=== PATIENT | female | born 1995 | race Caucasian/White ===

== ENCOUNTER 2018-01-18 17:12 | Emergency (ER) | payer BC, MEDICAID, SELFPAY ==
[2018-01-18 17:13] VITALS: BP 132/77; PULSE 107; RESP 17; TEMP 36.9; O2SAT 99; BMI 22.3
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
[2018-01-18] MEDS: Diphth,Pertuss(Acell),Tet Vac 0.5 ML Vial IM (18:10)
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
[2018-01-18 18:58] VITALS: BP 121/75; PULSE 98; RESP 6; O2SAT 99
== END 2018-01-18 18:59 | disposition home or self-care (01) ==
PROVIDERS: Emergency Provider Emergency Medicine; Family Provider Family Medicine; PCP Family Medicine
DX: O9A.212 Injury, poisoning and certain other consequences of external causes complicating pregnancy, second trimester (principal); S01.01XA Laceration without foreign body of scalp, initial encounter; S90.31XA Contusion of right foot, initial encounter; Z3A.18 18 weeks gestation of pregnancy; R40.2410 Glasgow coma scale score 13-15, unspecified time; V86.99XA Unspecified occupant of other special all-terrain or other off-road motor vehicle injured in nontraffic accident, initial encounter; Y93.9 Activity, unspecified; Y92.9 Unspecified place or not applicable
CPT/HCPCS: 12001; 73630; 90471; 90715; 99283; J7030

== ENCOUNTER 2018-06-13 20:18 | Outpatient (CLI) | payer MEDICAID, SELFPAY ==
[2018-06-13 21:20] VITALS: BMI 27.8
--- NOTE | 2018-06-14 06:45 | OB.TRI.NOTE ---
History of Present Illness Date of Service: 06/13/18 Was patient seen by the physician?: No Reason For Visit: R/O LABOR Date of Service: 06/13/18 Gestational age: 38.3 Allergies amoxicillin Allergy (Verified 06/13/18 20:58) Swelling NST - FHR Rate Baby A Baseline: 135 Variability:: Moderate Accelerations:: 15 x 15 Decelerations:: None NST Reactive:: Yes FHR Category:: Category I Uterine Activity:: irregular Impression/Plan 22yo @ 38.3 wks, false labor 1) dc home
== END 2018-06-13 22:33 | disposition home or self-care (01) ==
LOC: WPOUT 20:43 → OBT 20:49
PROVIDERS: Family Provider Family Medicine; PCP Family Medicine; Referring Provider Obstetrics & Gynecology; Visit Provider Obstetrics & Gynecology
DX: O47.1 False labor at or after 37 completed weeks of gestation (principal); Z3A.38 38 weeks gestation of pregnancy
CPT/HCPCS: 59025; 59050; 99218; G0378

== ENCOUNTER 2018-06-14 16:05 | Inpatient (IN) | payer MEDICAID, SELFPAY ==
[2018-06-13 21:20] VITALS: BMI 27.8
[2018-06-14 14:30] VITALS: BMI 29.4
[2018-06-14] MEDS: Acetaminophen 500 MG Tablet 1000 MG PO (15:10)
[2018-06-14] MEDS: Ondansetron ODT 4 MG Tablet PO (15:11)
[2018-06-14 16:35] LABS: Hematocrit 32.8 % (37-47); Hemoglobin 10.5 g/dl (12.0-15.0); Mean Corpuscular Hgb 26.8 pg (27.0-32.0); Mean Corpuscular Volume 83.7 fL (81-99); Mean Platelet Vol. 9.9 fl (6.2-12.0); Platelet Count 279 K/mm3 (150-450); RBC Distribution Width CV 14.2 % (11.6-14.6); RBC Distribution Width SD 43.3 fl (35.1-43.9); Red Blood Count 3.92 M/mm3 (4.2-5.4); Scan Indicated on CBC? Y/N NO; White Blood Count 21.2 K/mm3 (4.4-11.0)
--- NOTE | 2018-06-14 17:24 | PCM.HP.OB ---
History Date of Admission: 06/14/18 Final BI: 06/23/18 Final BI Source: US <20 weeks Gestational age: 38 Weeks and 5 Days History of this : This is a 22 year-old, G 1P0 @ 38.5 wks c/o contractions- found to be making cervical change- admitted for labor. Allergies amoxicillin Allergy (Verified 06/13/18 20:58) Swelling Home Medications: Home Medications Cyclobenzaprine [Flexeril] 10 mg PO TID PRN PRN 06/13/18 Vits [Prenatabs FA] 1 tablet PO DAILY 06/13/18 Sertraline HCl [Zoloft] 50 mg PO DAILY 06/13/18 Smoking Status: Never smoker Alcohol: None Number of Fetus(es): 1 Heart Tracin mod jaime, + accels, no decels. Reactive, category 1 TOCO Analysis: q2-4min History Past Pregnancies: Past Pregnancies Delivery Date Name GA/Weeks Outcome Route Weight Infant Gender Labor Length Anesthesia Delivery Location Provider FOB Labs: GBS neg, A+, HIV NR, HEP B neg, Syphils NEG, RUB imm, Expected Delivery Method: Spontaneous Vaginal Review of Systems Gastrointestinal: Reports: Abdominal Pain - fron contractions Psychiatric: Reports: Anxiety - on zoloft, doing well. Physical Exam General: Alert, Oriented x3 Abdomen: Soft, Non Tender, Gravid Neurological: Cranial nerves II-XII grossly intact SANDBLASTER GLASS: Normal external genitalia Estimated gestational size: Appropriate for gestational size Presentation: Cephalic Cervix Dilation (cm): 4 Station: -1 Effacement (%): 90 Assessment/Plan This is a 22 year-old, @ 38.5 wks in labor 1) admit to L&D 2) monitor FHR/toco 3) AROM performed- CLEAR 4) anticipate 5) epidural for pain mgmt 6) if indicated Pitocin
--- NOTE | 2018-06-14 17:28 | HP.PCM_ITS ---
History Date of Admission: 06/14/18 Final BI: 06/23/18 Final BI Source: US <20 weeks Gestational age: 38 Weeks and 5 Days History of this : This is a 22 year-old, G 1P0 @ 38.5 wks c/o contractions- found to be making cervical change- admitted for labor. Allergies amoxicillin Allergy (Verified 06/13/18 20:58) Swelling Home Medications: Home Medications Cyclobenzaprine [Flexeril] 10 mg PO TID PRN PRN 06/13/18 Vits [Prenatabs FA] 1 tablet PO DAILY 06/13/18 Sertraline HCl [Zoloft] 50 mg PO DAILY 06/13/18 Smoking Status: Never smoker Alcohol: None Number of Fetus(es): 1 Heart Tracin mod jaime, + accels, no decels. Reactive, category 1 TOCO Analysis: q2-4min History Past Pregnancies: Past Pregnancies Delivery Date Name GA/Weeks Outcome Route Weight Infant Gender Labor Length Anesthesia Delivery Location Provider FOB Labs: GBS neg, A+, HIV NR, HEP B neg, Syphils NEG, RUB imm, Expected Delivery Method: Spontaneous Vaginal Review of Systems Gastrointestinal: Reports: Abdominal Pain - fron contractions Psychiatric: Reports: Anxiety - on zoloft, doing well. Physical Exam General: Alert, Oriented x3 Abdomen: Soft, Non Tender, Gravid Neurological: Cranial nerves II-XII grossly intact DIRECT CARE WORKER: Normal external genitalia Estimated gestational size: Appropriate for gestational size Presentation: Cephalic Cervix Dilation (cm): 4 Station: -1 Effacement (%): 90 Assessment/Plan This is a 22 year-old, @ 38.5 wks in labor 1) admit to L&D 2) monitor FHR/toco 3) AROM performed- CLEAR 4) anticipate 5) epidural for pain mgmt 6) if indicated Pitocin
[2018-06-14] MEDS: Ondansetron 4 MG/2 ML Vial IV (18:38)
[2018-06-14] MEDS: Lactated Ringers 1,000 ML 50 ML IV (18:38)
[2018-06-14] MEDS: Oxytocin 30 units/NS 500 ml 30 UNITS/500 ML IV.SOLN 334 UNITS IV (22:20)
--- NOTE | 2018-06-14 22:24 | PCM.OB.VAG ---
Vaginal Delivery Maternal Presentation: Active Labor Amniotic Membrane Rupture Type: Artificial Amniotic Fluid Description: Clear Final BI: 06/23/18 Final BI Source: US <20 weeks Gestational age: 38 Weeks and 5 Days Date of Procedure: 06/14/18 Pre-Operative Diagnosis: spontaneous labor, term gestation Post-Operative Diagnosis: same, live female Surgery/ Procedure Performed: Spontaneous Vaginal Delivery Type of Anesthesia: Epidural Description of Procedure: of live female infant born without complication- good maternal pushing efforts. Presentation: Vertex Placental Delivery Description: Spontaneous Placenta Disposition: [facility] Cord Vessel Description: 3 Vessels Nuchal Cord Compression: Without compression Cord Entanglement: None Drain: Krueger to straight drain Estimated Blood Loss: 350 Infant A gender: Female (1 minute): 8 (5 minute): 9 Episiotomy Description: None Laceration: None Medications given after delivery: IV Pitocin, IM Methergin Complications: None
[2018-06-14] MEDS: Methylergonovine 0.2 MG/ML Ampul IM (22:25)
[2018-06-14] MEDS: Oxytocin 30 units/NS 500 ml 30 UNITS/500 ML IV.SOLN 167 UNITS IV (22:40)
--- NOTE | 2018-06-15 02:35 | NURSING ---
Assisted pt to restroom to attempt to urinate. Pt became nauseous on toilet and was unable to urinate. Pt moved to room 6 via wheelchair. Once pt resting in bed states she feels much better. Encouraged to sleep and will reassess nausea and attempt to urinate.
[2018-06-15 04:30] VITALS: BP 122/72; PULSE 108; RESP 16; TEMP 36.8; O2SAT 97
[2018-06-15] MEDS: Ibuprofen 600 MG Tablet PO ×3 (07:24→19:24)
--- NOTE | 2018-06-15 08:22 | PN.OBGYN_ITS ---
Patient Problems: Active and Suspected Problems (Last Updated 06/14/18 @ 17:28 by Danni Caballero MD) Anxiety (Acute) Schizencephaly (Acute) Subjective: pt seen at bedside, doing well.pt reports good pain control. lochia mild. breast feeding. - Physical Exam General: Alert, Oriented x3 Abdomen: Soft, Non Tender, - - fundus firm. Extremities: No Calf Tenderness Vital Signs Temp Pulse Resp BP Pulse Ox 98.2 F 108 H 16 122/72 H 97 06/15/18 04:30 06/15/18 04:30 06/15/18 04:30 06/15/18 04:30 06/15/18 04:30 Oxygen Delivery Method Room Air Weight: 73.028 kg Body Mass Index (BMI) 29.4 Intake and Output for Last 24 Hours 06/13/18 06/14/18 06/15/18 23:59 23:59 23:59 Output Total 400 / 400 Balance -400 / -400 Laboratory Tests Past 24 Hrs 06/14/18 06/14/18 16:15 16:15 WBC 21.2 H RBC 3.92 L Hgb 10.5 L Hct 32.8 L MCV 83.7 MCH 26.8 L MCHC 32.0 RDW 14.2 RDW Differential 43.3 Plt Count 279 MPV 9.9 Blood Type A POSITIVE Antibody Screen NEGATIVE Medical Necessity - Tobacco Use Smoking Status: Never smoker Assessment/Plan All Active Problems (Last Updated 06/14/18 @ 17:28 by Danni Bautista MD) Anxiety (Acute) Schizencephaly (Acute) PPD#1, doing well routine care pain mgmt
--- NOTE | 2018-06-15 08:23 | DCINST_ITS ---
Discharge Diet: No Restrictions Discharge Activity: Return to Normal Activity, May not drive while taking narcotic pain medications., May Shower May resume sexual activity in: 4-6 weeks Additional Activity Instructions:: Nothing in the vagina for 4-6 weeks. You may return to work/school in 6 weeks. Call your doctor if your incision/area has: Continuous Slow Oozing, Sudden Increased Bleeding, Increased Pain/ Swelling, Increased Redness, Foul Smelling Discharge Additional Instructions: If you experience any of the following, contact your healthcare provider. * Bleeding that soaks a pad every hour for 2 hours * Fever 100.4 or higher * Unrelieved incision or abdominal pain * Swelling, redness, discharge or bleeding from your incision or episiotomy site * Your incision begins to separate * Problems urinating (including inability to urinate or burning while urinating). * Visual changes * Severe headache * Flu-like symptoms * Pain or redness in one of both of your breasts * Pain, warmth, tenderness or swelling in your legs, especially the calf area * Frequent nausea and vomiting * Symptoms of depression or anxiety If you experience any of the following, call 911 or go to the nearest Emergency Room. * Chest pain * Problems breathing * Seizure activity * Partial or complete paralysis of a body part, slurred speech, weakness or drooping of the face, or a sudden inability to walk or hold your balance Allergies/Adverse Reactions: Allergies amoxicillin Allergy (Verified 06/13/18 20:58) Swelling Medications to take at Discharge Cyclobenzaprine [Flexeril] 10 mg PO TID PRN PRN 06/13/18 Vits [Prenatabs FA ] 1 tablet PO DAILY 06/13/18 Sertraline HCl [Zoloft] 50 mg PO DAILY 06/13/18 Ibuprofen [Motrin] 600 mg PO Q6H PRN PRN #30 tablet 06/15/18 The following prescriptions were given: Ibuprofen [Motrin] 600 mg PO Q6H PRN PRN #30 tablet PRN Reason: Mild Pain (1-310) When: Call to make an appointment with your doctor in 6 weeks. If you had elevated Blood Pressure or 4th degree laceration you will need to be seen in 2 weeks. Primary Care Physician: Olivia Maria PA-C [Primary Care Provider] - Test Results: Test results from this visit will be discussed in further detail at your follow- up appointment, if applicable.
[2018-06-15] MEDS: Sertraline 50 MG Tablet PO (09:15)
[2018-06-15] MEDS: Acetaminophen 500 MG Tablet 1000 MG PO (09:15)
[2018-06-15 10:00] VITALS: BP 124/81; PULSE 101; RESP 16; TEMP 37.3; O2SAT 96
[2018-06-15 12:00] VITALS: BP 127/76; PULSE 107; RESP 16; TEMP 36.5; O2SAT 97
[2018-06-15 18:00] VITALS: BP 127/74; PULSE 73; RESP 16; TEMP 36.8; O2SAT 98
[2018-06-15 20:00] VITALS: BP 115/76; PULSE 83; RESP 16; TEMP 37.5
[2018-06-16 02:00] VITALS: BP 96/43; PULSE 84; RESP 16; TEMP 36.9
[2018-06-16] MEDS: Ibuprofen 600 MG Tablet PO (05:26)
--- NOTE | 2018-06-16 07:48 | PN.OBGYN_ITS ---
Patient Problems: Active and Suspected Problems (Last Updated 06/14/18 @ 17:28 by Danni Caballero MD) Anxiety (Acute) Schizencephaly (Acute) Subjective: Pt doing well. Feels ready to go home. Ambulating and voiding without difficulty. Tolerating a regular diet without N/V. Denies lightheadedness, dizziness, CP, SOB, leg pain. Lochia normal. . - Physical Exam General: Alert, No apparent distress HEENT: Atraumatic Lungs: - - No increased resp effort Abdomen: Soft, Non-Distended Extremities: No edema Skin: No rashes Neurological: Neuro grossly intact Psych/Mental Status: Normal Affect, Appropriate Vital Signs Temp Pulse Resp BP Pulse Ox 98.5 F 84 16 96/43 L 98 06/16/18 02:00 06/16/18 02:00 06/16/18 02:00 06/16/18 02:00 06/15/18 18:00 Oxygen Delivery Method Room Air Weight: 161 lb Body Mass Index (BMI) 29.4 Intake and Output for Last 24 Hours 06/14/18 06/15/18 06/16/18 23:59 23:59 23:59 Output Total 400 / 400 Balance -400 / -400 Medical Necessity - Tobacco Use Smoking Status: Never smoker Assessment/Plan All Active Problems (Last Updated 06/14/18 @ 17:28 by Danni Bautista MD) Anxiety (Acute) Schizencephaly (Acute) PPD#2 s/p - Doing well - - PPBC: Declines at this time - Dispo: D/c home today. Discharge instructions reviewed
[2018-06-16 08:00] VITALS: BP 111/57; PULSE 109; RESP 16; TEMP 36.6
[2018-06-16] MEDS: Senna/Docusate Sodium 1 Tablet PO (09:39)
[2018-06-16] MEDS: Sertraline 50 MG Tablet PO (09:39)
[2018-06-16 13:24] VITALS: BP 125/82; PULSE 100; RESP 16; TEMP 37.2
== END 2018-06-16 15:10 | disposition home or self-care (01) | DRG 560 ==
LOC: WPOUT 16:07 → WP 22:16
PROVIDERS: Admitting Provider Obstetrics & Gynecology; Family Provider Family Medicine; PCP Family Medicine; Referring Provider Obstetrics & Gynecology; Visit Provider Obstetrics & Gynecology
DX: O99.344 Other mental disorders complicating childbirth (principal); F41.9 Anxiety disorder, unspecified; Z3A.38 38 weeks gestation of pregnancy; Z37.0 Single live birth; Z79.899 Other long term (current) drug therapy; Q04.6 Congenital cerebral cysts; O47.1 False labor at or after 37 completed weeks of gestation
CPT/HCPCS: 59025; 59050; 85027; 86850; 86900; 99218; J7120; G0378; J2405

== ENCOUNTER 2020-03-03 19:30 | Emergency (ER) | payer BC, MEDICAID, SELFPAY ==
[2020-03-03 19:31] VITALS: BP 129/90; PULSE 86; RESP 19; TEMP 36.8; O2SAT 98; BMI 23.9
[2020-03-03 19:39] VITALS: BP 129/90; PULSE 77; RESP 15; O2SAT 98
--- NOTE | 2020-03-03 19:51 | EKG12_ITS ---
Test Reason : SEIZURES Blood Pressure : / mmHG Vent. Rate : 085 BPM Atrial Rate : 085 BPM P-R Int : 120 ms QRS Dur : 078 ms QT Int : 374 ms P-R-T Axes : 059 057 031 degrees QTc Int : 445 ms Normal sinus rhythm Normal ECG Confirmed by ULICES LUDWIG, BRITNEY ([id number]), mapping editor JOSEPH PHAM ([id number]) on 03/07/2020 9:43:37 AM Referred By: Confirmed By:BRITNEY ELENA MD
--- NOTE | 2020-03-03 20:15 | CT_ITS ---
History: Seizure for 1 week. History of focal seizures. History of stroke at . Technique: Contiguous helical images were obtained through the brain. 2-D reformats. 223 images. Despite the history of problems since , no comparison imaging of any kind through the brain is perceived as available. Findings: The coronal images suggest the patient has schizencephaly with some heterotopic sanchez matter. Disease extends off the left lateral ventricle to the left frontal lobe. There is no significant midline shift. There is exvacuodilatation to the focal portion of the left lateral ventricle without hydrocephalus. No acute intracranial hemorrhage is present. No herniations are perceived. Visualized portions of the paranasal sinuses and mastoid air cells are free of disease. 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 No evidence of acute disease. Individualized dose optimization techniques were used for this CT. at 2042 Reported and signed by: Warren Moon MD Electronically Signed: Warren Moon MD at 20:41 EST Tel , Service support ,
[2020-03-03 20:30] LABS: Absolute Neutrophil Count 2.4 X10^3/uL (2.0-7.7); Basophil# 0.05 X10^3/uL; Basophil% 0.8 % (0-1); Eosinophil# 0.24 X10^3/uL; Eosinophils% 3.6 % (0-5); Hematocrit 37.8 % (37-47); Hemoglobin 11.5 g/dL (12.0-15.0); Lymphocyte % 46.8 % (19-41); Mean Corp Hgb Conc 30.4 g/dL (32-36); Mean Corpuscular Hgb 24.2 pg (27.0-32.0); Mean Corpuscular Volume 79.6 fL (81-99); Mean Platelet Vol. 10.5 fl (6.2-12.0); Monocyte# 0.79 X10^3/uL; Monocyte% 11.9 % (0-10); NRBC Flagged by Analyzer 0 % (0-5); Neutrophil # 2.43 X10^3/uL (2.7-7.7); Neutrophil % 36.7 % (47-70); Platelet Count 301 K/mm3 (150-450); RBC Distribution Width CV 19.5 % (11.6-14.6); RBC Distribution Width SD 56.7 fl (35.1-43.9); Red Blood Count 4.75 M/mm3 (4.2-5.4); White Blood Count 6.6 K/mm3 (4.4-11.0)
[2020-03-03 20:46] LABS: AST(SGOT) 11 U/L (15-37); Alanine Aminotransfer ALT/SGPT 23 U/L (13-56); Albumin, Serum 3.7 g/dL (3.2-5.0); Alkaline Phosphatase 108 U/L (45-117); Anion Gap 4 (5-15); BUN 14 mg/dL (7-18); BUN/Creat Ratio 19.9 RATIO (10-20); Calcium,Total 8.9 mg/dL (8.5-10.1); Chloride 108 mmol/L (98-107); EST Glomerular Filtration Rate 108 mL/min (>60); Est Glom Filt Rate - Afr Amer 130 mL/min (>60); Estimated Creatinine Clearance 107.01 ml/min; Globulin 3.8 g/dL (2.2-4.2); Glucose 88 mg/dL (74-106); Protein, Total 7.5 g/dL (6.4-8.2); Sodium Level 138 mmol/L (136-145)
[2020-03-03] MEDS: lamoTRIgine 25 MG Tablet 50 MG PO (20:47)
[2020-03-03 21:01] LABS: Lactic Acid 1.2 mmol/L (0.4-1.9)
--- NOTE | 2020-03-03 21:29 | ED.VIS.GEN ---
History of Present Illness Chief Complaint: Seizure Narrative: Patient presenting for evaluation secondary to potential seizures. Patient reports that she has an underlying history of schizencephaly and focal seizures. She reports that she is typically on Lamictal as well as as needed Xanax and citalopram. Patient states that her dosage of Lamictal was supposed to be 25 mg twice daily, but she has been taking it as 50 mg only at night. Patient is 12 weeks . She recently went back to work and has been having increased stress. Patient reportedly has been having issues of convulsions recently. She states that she will note that these are coming, as she starts to have twitches, and then she will have shaking of her upper and lower extremities of the last about 30 seconds for which she states that she is conscious throughout the entire thing and does not have any loss of consciousness bowel or bladder incontinence or tongue biting. Patient reports to me that she has been having increased episodes of the course of the last week that have resulted in 2 emergency department visits at [facility]. She had lab work and EKG, as needed benzos, but did not receive any sort of imaging. When she was having repeat episodes this evening it was recommended to her to come to this facility as we have more access to care. Patient denies being suicidal or homicidal. She is not hallucinating. She has not yet taken her nighttime doses of medications. Past Medical History - Allergies and Home Meds Allergies/Adverse Reactions: Allergies amoxicillin Allergy (Verified 06/13/18 20:58) Swelling Primary Care Physician: Olivia Maria PA-C [Primary Care Provider] - Prior records reviewed: Yes Past Medical History: - - Partial seizures Lives: With Family Smoking Status: Never smoker Alcohol: None Drugs: None Review of Systems All systems negative except as indicated General: Denies: Chills, Fever, Sweats Eyes: Denies: Visual changes - bilaterally, Diplopia ENT: Denies: Rhinorrhea, Sore throat Cardiovascular: Denies: Chest pain, Palpitations Respiratory: Denies: Dyspnea, Cough, Dyspnea on exertion Gastrointestinal: Denies: Abdominal pain, Nausea, Vomiting, Diarrhea, Melena, Hematochezia Genitourinary: Denies: Dysuria, Hematuria, Frequency Musculoskeletal: Denies: Back pain, Extremity Pain Skin: Denies: Rash, Wounds Neurological: Reports: - - Personal seizures Psych: Reports: - - Increased stress Physical Exam Vital Signs/Narrative: Vital Signs Temp Pulse Resp BP Pulse Ox 03/03/20 19:39 77 15 129/90 H 98 03/03/20 19:31 98.3 F 86 19 H 129/90 H 98 Inital Vital Signs reviewed: Yes General: Well nourished, Well developed, No Acute Distress Head: Normocephalic, Atraumatic Eyes: Perrl, EOMI ENT: Moist mucous membranes, No rhinorrhea Neck: Supple, Nontender Cardiovascular: Regular rate, Regular rhythm, No murmurs Respiratory: No distress, CTA bilaterally, Chest nontender Abdomen: Soft, Nontender, Nondistended, Normal bowel sounds Back: Nontender, Normal Inspection Extremities: Nontender, No edema Skin: Normal color, No rash Neurological: Alert, Oriented x3, Cranial nerves II-XII grossly intact, Normal Strength, Normal Sensation, - - Patient is having intermittent twitches of the shoulders and face which are alleviated by distraction Psychological: Normal affect, Normal Mood Diagnostic/Tx/Re-eval Clinical Impression(s) from Imaging Studies Brain CT 03/03/20 20:15 IMPRESSION: 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 No evidence of acute disease. Individualized dose optimization techniques were used for this CT. at 2042 Reported and signed by: Warren Moon MD Electronically Signed: Warren Moon MD at 20:41 EST Tel , Service support , Laboratory Data 03/03/20 03/03/20 03/03/20 19:35 19:35 20:18 WBC 6.6 RBC 4.75 Hgb 11.5 L Hct 37.8 MCV 79.6 L MCH 24.2 L MCHC 30.4 L RDW Std Deviation 56.7 H RDW Coeff of Kaitlin 19.5 H Plt Count 301 MPV 10.5 Immature Gran % (Auto) 0.200 Neut % (Auto) 36.7 L Lymph % (Auto) 46.8 H Troup % (Auto) 11.9 H Eos % (Auto) 3.6 Baso % (Auto) 0.8 Absolute Neuts (auto) 2.4 Absolute Lymphs (auto) 3.10 Nucleated RBC % 0 Sodium 138 Potassium 4.0 Chloride 108 H Carbon Dioxide 26.0 Anion Gap 4 L BUN 14 Creatinine 0.70 Estim Creat Clear Calc 107.01 Est GFR (MDRD) Af Amer 130 Est GFR (MDRD) Non-Af 108 BUN/Creatinine Ratio 19.9 Glucose 88 Lactic Acid 1.2 Calcium 8.9 Total Bilirubin 0.30 AST 11 L ALT 23 Alkaline Phosphatase 108 Troponin I < 0.015 Total Protein 7.5 Albumin 3.7 Globulin 3.8 Albumin/Globulin Ratio 1.0 - EKG Initial EKG Interpretation: - - Sinus rhythm of [address] segments normal T waves normal [place] and QTc intervals normal QRS duration no evidence of acute ischemia or arrhythmia - Medical Decision Making Patient presented secondary to abnormal twitching, and reported seizures. The way the patient describes this she states that she is fully awake during these, and these are either nonepileptogenic seizures or more associated with her partial seizures. Patient was given her nighttime dose of Lamictal. IV was established laboratory studies were obtained. CBC chemistry lactic acid found to be within normal limits. No evidence of electrolyte derangement. EKG was normal. CT imaging of the brain was stable with schizencephaly but no other evidence of acute pathology. Patient had no episodes of tonic-clonic seizures in the emergency department. Patient told me that rather than taking her medication twice daily as prescribed she was taking double the dose once at night. Potentially this is associated with the patient's increased symptoms, or its associated with increased stress and nonepileptogenic seizures, regardless she does not have any evidence of grand mal tonic-clonic seizures that would require admission. Patient will be sent home with as needed Ativan to be taken, she was recommended to go back to her twice daily dosing of her Lamictal and should she continue to have issues she will be doubled from 25 mg twice a day to 50 mg twice a day. She will be provided outpatient neurology follow-up. She understands signs and symptoms which to return. ED Disposition - Plan for ED Patient: Disposition: Home or Assisted Living Diagnosis: Pseudoseizure Instructions: ED Seizure Recurrent Adult, ED Conversion Disdr Conversion Reac Prescriptions: Lorazepam [Ativan] 1 mg PO TID #10 tab Prescription Printed Referrals: Sánchez Spears MD [STAFF PHYSICIAN] - As soon as possible
[2020-03-03 21:57] LABS: POSITIVE COUNT NO; POSITIVE DIFFERENTIAL NO; POSITIVE MORPHOLOGY NO
[2020-03-03 22:03] VITALS: BP 124/79; PULSE 71; RESP 16; O2SAT 98
== END 2020-03-03 22:07 | disposition home or self-care (01) ==
PROVIDERS: Emergency Provider Emergency Medicine; PCP Family Medicine
DX: F44.5 Conversion disorder with seizures or convulsions (principal); Q04.6 Congenital cerebral cysts; Z86.73 Personal history of transient ischemic attack (TIA), and cerebral infarction without residual deficits; Z79.899 Other long term (current) drug therapy
CPT/HCPCS: 70450; 80053; 83605; 84484; 85025; 93005; 99285; A4216

== ENCOUNTER 2020-08-21 18:05 | Emergency (ER) | payer BC, MEDICAID, SELFPAY ==
[2020-08-21 18:06] VITALS: BP 120/83; PULSE 89; RESP 14; TEMP 36.7; O2SAT 98; BMI 23.0
--- NOTE | 2020-08-21 18:16 | EKG12_ITS ---
Test Reason : DYSRHYTHMIA Blood Pressure : / mmHG Vent. Rate : 079 BPM Atrial Rate : 079 BPM P-R Int : 114 ms QRS Dur : 080 ms QT Int : 378 ms P-R-T Axes : -11 055 031 degrees QTc Int : 433 ms Normal sinus rhythm Normal ECG Confirmed by ULICES LUDWIG, BRITNEY ([id number]), fan mail editor JOSEPH PHAM ([id number]) on 08/22/2020 1:07:12 PM Referred By: MICHELLE Confirmed By:BRITNEY ELENA MD
--- NOTE | 2020-08-21 18:16 | CT_ITS ---
EXAMINATION : Head CT w/out contrast HISTORY : facial tingling COMPARISON : None. TECHNIQUE : Multiple contiguous axial images were obtained from the skull base to the vertex without intravenous contrast. A radiation dose optimization technique was used for this scan. FINDINGS : The ventricles and sulci are normal in size. There is no evidence for acute intracranial hemorrhage, mass effect, or midline shift. There is no extra-axial fluid collection. There is normal martinez-white differentiation, without CT evidence of acute ischemia or infarct. 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 The skull base and calvarium are unremarkable. The orbits are unremarkable. The paranasal sinuses are clear. The mastoid air cells are well-aerated. Pneumatization of the petrous apices. The soft tissues are unremarkable. 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 Electronically Signed: Jesus Lyons MD at 19:07 EDT Tel , Service support ,
[2020-08-21 18:23] VITALS: BP 107/71; PULSE 70; RESP 15
[2020-08-21 18:39] LABS: Mucous, Urine 0 SEEN /hpf (<or=2+)
[2020-08-21 18:41] LABS: Absolute Lymphocyte Count 3.31 X10^3/uL (0.83-4.51); Absolute Neutrophil Count 7.9 X10^3/uL (2.0-7.7); Basophil# 0.05 X10^3/uL; Basophil% 0.4 % (0-1); Eosinophil# 0.24 X10^3/uL; Eosinophils% 1.9 % (0-5); Hematocrit 39.8 % (37-47); Hemoglobin 12.7 g/dL (12.0-15.0); Lymphocyte # 3.31 X10^3/ul (0.83-4.51); Lymphocyte % 26.1 % (19-41); Mean Corp Hgb Conc 31.9 g/dL (32-36); Mean Corpuscular Hgb 26.7 pg (27.0-32.0); Mean Corpuscular Volume 83.6 fL (81-99); Mean Platelet Vol. 10.2 fl (6.2-12.0); Monocyte# 1.15 X10^3/uL; Monocyte% 9.1 % (0-10); NRBC Flagged by Analyzer 0 % (0-5); Neutrophil # 7.89 X10^3/uL (2.7-7.7); Neutrophil % 62.3 % (47-70); Platelet Count 370 K/mm3 (150-450); RBC Distribution Width CV 13.3 % (11.6-14.6); RBC Distribution Width SD 40.9 fl (35.1-43.9); Red Blood Count 4.76 M/mm3 (4.2-5.4); White Blood Count 12.7 K/mm3 (4.4-11.0)
[2020-08-21 18:43] LABS: Color, Urine Yellow (Yellow); Glucose, Dipstick Normal (Normal); Ketone-Dipstick 5 mg/dl (Negative); Leukocyte Esterase-Dipstick 100 /ul (Negative); Nitrite-Dipstick Negative (Negative); Occult Blood-Urine 250 /ul (Negative); Protein-Dipstick 15 mg/dl (Negative); Urine Bilirubin Dipstick Negative (Negative); Urine Clarity Sl. Cloudy (Clear); Urine Urobilinogen 1 mg/dl (Normal); Urine pH 6.5 (5.0 - 8.0)
[2020-08-21 18:45] LABS: Internal QC Validated? YES +Cl - CLEAR BKGD; Pregnancy, Urine Negative Negative
--- NOTE | 2020-08-21 18:50 | EDS_ITS ---
HPI History of Present Illness Chief Complaint: Neuro S/Sx Informant: patient Narrative Narrative: 25-year-old female presents with concern for facial tingling. States this occurred approximately 4 to 5 hours ago. States that she took a nap following and it remained. States that at first it was her entire face and now it is just around her lips. States it was on both sides of her face. States it was also in her left arm. Denies any vision change, headache, neck pain, nausea, vomiting, chest pain, shortness of breath, abdominal pain, urinary symptoms. PFSH PFSH Medical History Anxiety Schizencephaly Home Medications alprazolam 0.25 mg PO TID PRN 03/03/20 [History Last Taken Unknown] citalopram 40 mg PO DAILY 03/03/20 [History Last Taken Unknown] drospirenone-ethinyl estradiol 1 tab PO DAILY 03/03/20 [History Last Taken Unknown] clobazam [Onfi] 10 mg PO QHS 08/21/20 [History Last Taken Unknown] lamotrigine 200 mg PO BID 08/21/20 [History Last Taken Unknown] lorazepam 1 mg PO TID PRN 08/21/20 [History Last Taken Unknown] Allergy/AdvReac Type Severity Reaction Status Date / Time amoxicillin Allergy Swelling Verified 08/21/20 18:06 no significant family history no surgical history Social History Smoking Status: Never smoker ROS ROS ED Constitutional Constitutional ED: Denies chills, fever(s) or sweats Eyes Eyes: Denies blurry vision, change in vision or diplopia ENT ENT ED: Denies rhinorrhea or sore throat Cardiovascular Cardiovascular: Denies chest pain, orthopnea, palpitations or racing heartbeat Respiratory/Chest Respiratory/Chest: Denies cough, dyspnea, dyspnea on exertion, orthopnea or sputum Gastrointestinal Gastrointestinal: Denies abdominal pain, constipation, diarrhea, melena, nausea or vomiting Genitourinary Genitourinary ED: Denies dysuria, hematuria or urinary frequency Musculoskeletal Musculoskeletal: Denies arthralgias, myalgias or neck pain Integumentary Denies rash Neurologic Neurologic: Reports paresthesias and other Details: Bilateral facial tingling ; Denies headache(s) or weakness Psychiatric Psychiatric: Denies anxiety or depression Hematologic/Lymphatic Hematologic/Lymphatic: Denies easy bleeding or easy bruising Allergic/Immunologic Allergic/Immunologic ED: Denies mouth swelling or tongue swelling EXAM Physical Exam Const Vital Signs: 08/21/20 18:06 08/21/20 18:23 08/21/20 19:08 Temperature 98.1 F Temperature Source Temporal Pulse Rate 89 70 80 Respiratory Rate 14 15 16 Blood Pressure 120/83 H 107/71 121/81 H Blood Pressure Mean 95 83 94 Pulse Ox 98 95 Oxygen Delivery Method Room Air Room Air Positive well nourished and well developed General Appearance ED: well developed HEENT Reports TM's clear and moist mucous membranes normocephalic and atraumatic Tympanic Membrane ED: Yes TM's clear Eyes PERRL and EOMs intact bilaterally Neck no lymphadenopathy, supple and no JVD Chest Wall inspection of chest normal Resp normal respiratory effort and clear to auscultation bilaterally Cardio regular rate, S1 normal heart sound, S2 normal heart sound and no murmurs Peripheral Pulses: pulses 2+ throughout GI soft to palpation, non-tender and non-distended Back/Spine no CVA tenderness and no thoracic nor lumbar tenderness Extremity normal to inspection General Extremety ED: Negative for edema or tenderness General Extremity: Negative for edema Neuro oriented x3, CN's II-XII intact bilaterally and no sensory deficits noted Sensorium / Orientation: alert Motor Exam: strength 5/5 throughout Psych mental status grossly normal Skin no rashes or lesions noted MDM MDM MDM Narrative Medical decision making narrative: Patient appears well nontoxic. Vital signs within normal limits. No focal neurologic deficit. Lab work within normal limits. Urine shows a mild amount of ketones. Will be given 1 L of normal saline. CT brain negative. Patient symptoms are bilateral and unlikely to be neurologic in nature. No signs of meningismus. Patient will be advised to follow-up with her primary care provider and return for new or worsening symptoms. Patient agreeable and discharged home in stable condition. Lab Data Attestation: I reviewed the patient's lab results. Labs: Laboratory Results - last 24 hr 08/21/20 08/21/20 08/21/20 18:30 18:30 18:30 WBC 12.7 H RBC 4.76 Hgb 12.7 Hct 39.8 MCV 83.6 MCH 26.7 L MCHC 31.9 L RDW Std Deviation 40.9 RDW Coeff of Kaitlin 13.3 Plt Count 370 MPV 10.2 Immature Gran % (Auto) 0.200 Neut % (Auto) 62.3 Lymph % (Auto) 26.1 [place] % (Auto) 9.1 Eos % (Auto) 1.9 Baso % (Auto) 0.4 Absolute Neuts (auto) 7.9 H Absolute Lymphs (auto) 3.31 Nucleated RBC % 0 Sodium 141 Potassium 3.8 Chloride 105 Carbon Dioxide 28.0 Anion Gap 8 BUN 8 Creatinine 0.70 Estim Creat Clear Calc 106.09 Est GFR (MDRD) Af Amer 132 Est GFR (MDRD) Non-Af 109 BUN/Creatinine Ratio 11.5 Glucose 103 Calcium 9.1 Magnesium 1.9 Total Bilirubin 0.20 AST 15 ALT 22 Alkaline Phosphatase 101 Total Protein 8.1 Albumin 3.7 Globulin 4.4 H Albumin/Globulin Ratio 0.8 L Urine Color Yellow Urine Clarity Sl. Cloudy Urine pH 6.5 Ur Specific [place] 1.020 Urine Protein 15 H Urine Glucose (UA) Normal Urine Ketones 5 H Urine Occult Blood 250 H Urine Nitrite Negative Urine Bilirubin Negative Urine Urobilinogen 1 H Ur Leukocyte Esterase 100 H Urine RBC 10-25 SEEN Urine WBC 0-5 SEEN Ur Squamous Epith Cells 0-5 SEEN Urine Bacteria 1+ Urine Mucus 0 SEEN Urine Test POC Glucose 08/21/20 08/21/20 18:30 19:06 WBC RBC Hgb Hct MCV MCH MCHC RDW Std Deviation RDW Coeff of Kaitlin Plt Count MPV Immature Gran % (Auto) Neut % (Auto) Lymph % (Auto) [place] % (Auto) Eos % (Auto) Baso % (Auto) Absolute Neuts (auto) Absolute Lymphs (auto) Nucleated RBC % Sodium Potassium Chloride Carbon Dioxide Anion Gap BUN Creatinine Estim Creat Clear Calc Est GFR (MDRD) Af Amer Est GFR (MDRD) Non-Af BUN/Creatinine Ratio Glucose Calcium Magnesium Total Bilirubin AST ALT Alkaline Phosphatase Total Protein Albumin Globulin Albumin/Globulin Ratio Urine Color Urine Clarity Urine pH Ur Specific [place] Urine Protein Urine Glucose (UA) Urine Ketones Urine Occult Blood Urine Nitrite Urine Bilirubin Urine Urobilinogen Ur Leukocyte Esterase Urine RBC Urine WBC Ur Squamous Epith Cells Urine Bacteria Urine Mucus Urine Test Negative POC Glucose 100 Radiography Diagnostic Testing: Radiology Impression Brain CT 08/21/20 18:16 IMPRESSION: 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 Electronically Signed: Jesus Lyons MD at 19:07 EDT Tel , Service support , Rhythm Strip Rhythm Strip: Sinus Rhythm Rate: 79 Ectopy: None EKG Initial EKG: Attestation: I personally reviewed and interpreted this EKG as follows: Interpretation: Sinus Rhythm and No Acute Injury Pattern Comments: Normal sinus rhythm at 79 bpm. SD interval of 114 ms. QTC of 433 ms. Discharge Plan Triage Chief Complaint: Neuro S/Sx ED Provider: Georges Piedra Dx/Rx/DC Orders Clinical Impression: Facial paresthesia Instructions: ED Paraesthesias Prescriptions: No Action citalopram 40 MG tablet 40 mg PO DAILY RF: 0 alprazolam 0.25 MG tablet 0.25 mg PO TID PRN (Reason: Anxiety) RF: 0 drospirenone-ethinyl estradiol 1 EACH tablet 1 tab PO DAILY RF: 0 lamotrigine 200 mg Tablet 200 mg PO BID RF: 0 lorazepam 1 MG tablet 1 mg PO TID PRN (Reason: Seizure Activity) RF: 0 clobazam [Onfi] 10 mg Tablet 10 mg PO QHS RF: 0 Primary Care Provider: Olivia Maria Referrals: Olivia Maria PA-C [Primary Care Provider] - 2 Days Disposition Disposition: Home, self care
[2020-08-21 18:53] VITALS: BMI 23.0
[2020-08-21 18:58] LABS: ALB/GLOB Ratio 0.8 RATIO (0.9-2.4); AST(SGOT) 15 U/L (15-37); Alanine Aminotransfer ALT/SGPT 22 U/L (13-56); Albumin, Serum 3.7 g/dL (3.2-5.0); Alkaline Phosphatase 101 U/L (45-117); Anion Gap 8 (5-15); BUN 8 mg/dL (7-18); BUN/Creat Ratio 11.5 RATIO (10-20); Bacteria 1+ /hpf (None Seen); Calcium,Total 9.1 mg/dL (8.5-10.1); Chloride 105 mmol/L (98-107); EST Glomerular Filtration Rate 109 mL/min (>60); Est Glom Filt Rate - Afr Amer 132 mL/min (>60); Estimated Creatinine Clearance 106.09 ml/min; Globulin 4.4 g/dL (2.2-4.2); Glucose 103 mg/dL (74-106); Magnesium 1.9 mg/dL (1.6-2.6); Potassium 3.8 mmol/L (3.5-5.1); Protein, Total 8.1 g/dL (6.4-8.2); Red Blood Cells-Urine 10-25 SEEN /hpf (0-5); Sodium Level 141 mmol/L (136-145); Squamous Epithelial Cells - UA 0-5 SEEN /hpf (5-10); White Blood Cells 0-5 SEEN /hpf (0-5)
[2020-08-21 19:08] VITALS: BP 121/81; PULSE 80; RESP 16; O2SAT 95
[2020-08-21 19:11] LABS: Bedside Glucose 100 mg/dL (70-110)
[2020-08-21 19:42] VITALS: BP 126/76; PULSE 85; RESP 18; O2SAT 97
== END 2020-08-21 19:43 | disposition home or self-care (01) ==
PROVIDERS: Emergency Provider Emergency Medicine; PCP Family Medicine
DX: R20.2 Paresthesia of skin (principal); F41.9 Anxiety disorder, unspecified; Q04.6 Congenital cerebral cysts; Z79.899 Other long term (current) drug therapy
CPT/HCPCS: 70450; 80053; 81001; 81025; 82962; 83735; 85025; 93005; 96360; 99284; A4216

== ENCOUNTER 2021-05-15 15:46 | Outpatient (CLI) | payer BC, MEDICAID, SELFPAY ==
--- NOTE | 2021-05-15 14:45 | EMB_PTH ---
PATIENT: EFRA VERMA LOC: [facility] U#:[id number] AGE/SX: 25/F ROOM: RE05/15/[address]: Dr. Marco A Islas MD : 1995 BED: DIS: 05/15/2021 SPEC #: [id number] RECD: 05/15/21 15:55 STATUS: JAMES REGus #: [id number] AMRY: 05/15/21 14:[address]: Marco A Islas DEPT: SURGICAL PATHOLOGY RECD BY: Susanna Chavarria ENTERED: 05/16/21 09:41 SP TYPE: ENDOM BX/C ABDIEL DR: Olivia Maria PA-C Tissues: Endometrium, NOS Procedures: Surgery Specimen Level IV HEADER OPERATION: Endometrial biopsy PRE-OP DIAGNOSIS: Abnormal uterine bleeding TISSUE SUBMITTED: Endometrial biopsy MICROSCOPIC DIAGNOSIS Endometrium, biopsy: Transition endometrium with stroma and focal glandular breakdown. Benign stromal hyperplasia suggestive of exogenous hormonal effect. See comment. AM:keisha 05/17/2021 COMMENT Clinical correlation is suggested. MICROSCOPIC DESCRIPTION Slides are reviewed. GROSS DESCRIPTION Received in fixative is one container labeled with the patient's name and designated endometrial biopsy. The specimen consists of multiple irregular and elongated fragments of light to dark doran soft tissue that in aggregate measure 2.6 x 0.5 x 0.1 cm. The specimen is totally submitted in one cassette. / AM:keisha 05/16/2021 TC:5 CPT: 50252
== END 2021-05-15 23:59 | disposition home or self-care (01) ==
PROVIDERS: PCP Family Medicine; Visit Provider Obstetrics & Gynecology
DX: N85.01 Benign endometrial hyperplasia (principal)
CPT/HCPCS: 88305

== ENCOUNTER → 2022-07-12 | Outpatient (CLI) | payer MEDICAID, SELFPAY ==
[2022-07-23 16:00] LABS: HPV Reflexed? NOT INDICATED
== END | disposition home or self-care (01) ==
LOC: WOBLAB 16:45
PROVIDERS: PCP Family Medicine; Visit Provider Obstetrics & Gynecology
DX: Z12.4 Encounter for screening for malignant neoplasm of cervix (principal)
CPT/HCPCS: 88175; G0145

== ENCOUNTER 2022-08-23 17:42 | Emergency (ER) | payer MEDICAID, SELFPAY ==
[2022-08-23 17:43] VITALS: BP 146/89; PULSE 99; RESP 16; TEMP 36.6; O2SAT 100; BMI 20.9
[2022-08-23 18:41] LABS: Absolute Lymphocyte Count 4.33 X10^3/uL (0.83-4.51); Absolute Neutrophil Count 6.3 X10^3/uL (2.0-7.7); Basophil# 0.05 X10^3/uL; Basophil% 0.4 % (0-1); Eosinophil# 0.29 X10^3/uL; Eosinophils% 2.5 % (0-5); Hematocrit 39.1 % (37-47); Hemoglobin 12.9 g/dL (12.0-15.0); Lymphocyte # 4.33 X10^3/ul (0.83-4.51); Lymphocyte % 36.8 % (19-41); Mean Corpuscular Volume 87.9 fL (81-99); Mean Platelet Vol. 9.7 fl (6.2-12.0); Monocyte# 0.79 X10^3/uL; Monocyte% 6.7 % (0-10); NRBC Flagged by Analyzer 0 % (0-5); Neutrophil # 6.29 X10^3/uL (2.7-7.7); Neutrophil % 53.3 % (47-70); Platelet Count 369 K/mm3 (150-450); RBC Distribution Width SD 42.2 fl (35.1-43.9); Red Blood Count 4.45 M/mm3 (4.2-5.4); White Blood Count 11.8 K/mm3 (4.4-11.0)
[2022-08-23 19:05] LABS: Internal QC Validated? YES +Cl - CLEAR BKGD; Pregnancy, Serum, hCG Quali. NEGATIVE Negative
[2022-08-23 19:09] LABS: ALB/GLOB Ratio 0.7 RATIO (0.9-2.4); AST(SGOT) 16 U/L (15-37); Alanine Aminotransfer ALT/SGPT 22 U/L (13-56); Albumin, Serum 3.4 g/dL (3.2-5.0); Alkaline Phosphatase 80 U/L (45-117); Anion Gap 11 (5-15); BUN 11 mg/dL (7-18); BUN/Creat Ratio 14.1 RATIO (10-20); Chloride 106 mmol/L (98-107); Creatinine, Serum 0.78 mg/dL (0.55-1.02); EST Glomerular Filtration Rate 94 mL/min (>60); Est Glom Filt Rate - Afr Amer 114 mL/min (>60); Estimated Creatinine Clearance 93.55 ml/min; Globulin 4.8 g/dL (2.2-4.2); Glucose 96 mg/dL (74-106); Potassium 3.5 mmol/L (3.5-5.1); Protein, Total 8.2 g/dL (6.4-8.2); Sodium Level 140 mmol/L (136-145)
--- NOTE | 2022-08-23 19:10 | ED.VIS.FEGU ---
HPI HPI - Female History of Present Illness Chief Complaint: Vag Bleeding Narrative Narrative: 27-year-old female presenting with vaginal bleeding. She states she had vaginal bleeding and spotting since June. She sees Dr. Marco A Islas for this. She is scheduled for an ablation in September. She states today she felt a little bit lightheaded and called Dr. Islas's office and was referred to the ED. She states she has gone through a few more pads than usual. She states due to the vaginal bleeding she does not know when her menstrual cycle is. He does not believe she is . She does not have any abdominal pain but states she has some slight cramping which she always has. [facility] Medical History Anxiety Schizencephaly Home Medications alprazolam 0.25 mg tablet 0.25 mg PO TID PRN Anxiety 03/03/20 [History Last Taken Unknown] citalopram 40 mg tablet 40 mg PO DAILY 03/03/20 [History Last Taken Unknown] drospirenone 3 mg-ethinyl estradiol 0.02 mg tablet 1 tab PO DAILY 03/03/20 [History Last Taken Unknown] clobazam 10 mg tablet (Onfi) 10 mg PO QHS 08/21/20 [History Last Taken Unknown] lamotrigine 200 mg tablet 200 mg PO BID 08/21/20 [History Last Taken Unknown] lorazepam 1 mg tablet 1 mg PO TID PRN Seizure Activity 08/21/20 [History Last Taken Unknown] Allergy/AdvReac Type Severity Reaction Status Date / Time amoxicillin Allergy Swelling Verified 08/23/22 17:45 Social History Smoking Status: Never smoker ROS ROS ED ROS Narrative Lightheadedness Constitutional Constitutional ED: Denies chills, fever(s) or sweats Eyes Eyes: Denies blurry vision or change in vision ENT ENT ED: Denies ear pain or sore throat Cardiovascular Cardiovascular: Denies chest pain, palpitations or racing heartbeat Respiratory/Chest Respiratory/Chest: Denies cough, dyspnea or sputum Gastrointestinal Gastrointestinal: Denies abdominal pain, constipation, diarrhea, nausea or vomiting Genitourinary Genitourinary ED: Reports other Details: Vaginal spotting ; Denies dysuria, hematuria or urinary frequency Musculoskeletal Musculoskeletal: Denies arthralgias, myalgias or neck pain Integumentary Denies abscess, Abrasions or rash Neurologic Neurologic: Denies headache(s), paresthesias or weakness Psychiatric Psychiatric: Denies anxiety, depression, suicidal ideation or suicidal thoughts Endocrine Endocrinology: Denies polydipsia or polyuria EXAM Physical Exam Const Vital Signs: 08/23/22 17:43 08/23/22 19:43 08/23/22 20:04 Temperature 97.8 F Temperature Source Temporal Pulse Rate 99 93 Pulse Rate [Lying] 90 Pulse Rate [Sitting (for 1 minute prior to obtaining)] 110 H Pulse Rate [Standing (for 1 minute prior to obtaining)] 129 H Respiratory Rate 16 16 Blood Pressure 146/89 H 118/86 H Blood Pressure [Lying] 128/97 H Blood Pressure [Sitting (for 1 minute prior to obtaining)] 140/102 H Blood Pressure [Standing (for 1 minute prior to obtaining)] 127/98 H Blood Pressure Mean 108 96 Blood Pressure Mean [Lying] 107 Blood Pressure Mean [Sitting (for 1 minute prior to obtaining)] 114 Blood Pressure Mean [Standing (for 1 minute prior to obtaining)] 107 Pulse Ox 100 98 Oxygen Delivery Method Room Air Room Air 08/23/22 20:58 Temperature Temperature Source Pulse Rate 81 Pulse Rate [Lying] Pulse Rate [Sitting (for 1 minute prior to obtaining)] Pulse Rate [Standing (for 1 minute prior to obtaining)] Respiratory Rate 16 Blood Pressure 118/64 Blood Pressure [Lying] Blood Pressure [Sitting (for 1 minute prior to obtaining)] Blood Pressure [Standing (for 1 minute prior to obtaining)] Blood Pressure Mean Blood Pressure Mean [Lying] Blood Pressure Mean [Sitting (for 1 minute prior to obtaining)] Blood Pressure Mean [Standing (for 1 minute prior to obtaining)] Pulse Ox 99 Oxygen Delivery Method Positive well nourished General Appearance ED: NAD HEENT Reports moist mucous membranes Eyes PERRL and EOMs intact bilaterally General Eye ED: Negative for pale conjunctiva Resp normal respiratory effort and clear to auscultation bilaterally Auscultation: Negative for rales, rhonchi or wheezes Cardio regular rate and regular rhythm GI normal to inspection, nondistended, normoactive bowel sounds Neuro oriented x3 Sensorium / Orientation: alert Motor Exam: strength 5/5 throughout Psych Mood & Affect: anxious Skin no rashes or lesions noted MDM MDM MDM Narrative Medical decision making narrative: Patient presented with vaginal spotting. She states she feels lightheaded. She is a little tachycardic but admits she is anxious. CBC to assess white blood cell count, hemoglobin, platelets, differential. CMP to assess liver function, renal function, glucose, anion gap. Serum test to assess for . All of her blood work appears to be within normal limits. Serum negative. Hemoglobin stable at 12.9. Discussed with Dr. Islas. He stated that it was not determined what the source of her bleeding was. He states that he needs to get her into the OR and do the ablation and this where he will determine the etiology of the chronic vaginal bleeding. He recommended transport home follow-up with him. Patient minimal to this. Notably patient's orthostatic vital signs are normal as far as blood pressure goes but her heart rate does go up. Her heart rate when I was in the room was tachycardic as well. She does appear to be very anxious but I do not believe she is dehydrated patient will be discharged home to follow-up with Dr. Islas. Impression: 1. Anxiety 2. Dysfunctional uterine bleeding Lab Data Labs: Laboratory Results - last 24 hr 08/23/22 08/23/22 08/23/22 18:28 18:28 18:28 WBC 11.8 H RBC 4.45 Hgb 12.9 Hct 39.1 MCV 87.9 MCH 29.0 MCHC 33.0 RDW Std Deviation 42.2 RDW Coeff of Kaitlin 13.0 Plt Count 369 MPV 9.7 Immature Gran % (Auto) 0.300 Neut % (Auto) 53.3 Lymph % (Auto) 36.8 [place] % (Auto) 6.7 Eos % (Auto) 2.5 Baso % (Auto) 0.4 Absolute Neuts (auto) 6.3 Absolute Lymphs (auto) 4.33 Nucleated RBC % 0 Sodium 140 Potassium 3.5 Chloride 106 Carbon Dioxide 23.0 Anion Gap 11 BUN 11 Creatinine 0.78 Estim Creat Clear Calc 93.55 Est GFR (MDRD) Af Amer 114 Est GFR (MDRD) Non-Af 94 BUN/Creatinine Ratio 14.1 Glucose 96 Calcium 9.0 Total Bilirubin 0.20 AST 16 ALT 22 Alkaline Phosphatase 80 Total Protein 8.2 Albumin 3.4 Globulin 4.8 H Albumin/Globulin Ratio 0.7 L Serum , Qual NEGATIVE Urine Color Urine Clarity Urine pH Ur Specific [place] Urine Protein Urine Glucose (UA) Urine Ketones Urine Occult Blood Urine Nitrite Urine Bilirubin Urine Urobilinogen Ur Leukocyte Esterase Urine RBC Urine WBC Ur Squamous Epith Cells Urine Bacteria Urine Mucus Blood Type 08/23/22 08/23/22 18:28 19:50 WBC RBC Hgb Hct MCV MCH MCHC RDW Std Deviation RDW Coeff of Kaitlin Plt Count MPV Immature Gran % (Auto) Neut % (Auto) Lymph % (Auto) [place] % (Auto) Eos % (Auto) Baso % (Auto) Absolute Neuts (auto) Absolute Lymphs (auto) Nucleated RBC % Sodium Potassium Chloride Carbon Dioxide Anion Gap BUN Creatinine Estim Creat Clear Calc Est GFR (MDRD) Af Amer Est GFR (MDRD) Non-Af BUN/Creatinine Ratio Glucose Calcium Total Bilirubin AST ALT Alkaline Phosphatase Total Protein Albumin Globulin Albumin/Globulin Ratio Serum , Qual Urine Color Yellow Urine Clarity Clear Urine pH 7.0 Ur Specific [place] 1.010 Urine Protein Negative Urine Glucose (UA) Normal Urine Ketones Negative Urine Occult Blood 250 H Urine Nitrite Negative Urine Bilirubin Negative Urine Urobilinogen Normal Ur Leukocyte Esterase Negative Urine RBC 0-5 SEEN Urine WBC 0-5 SEEN Ur Squamous Epith Cells 0-5 SEEN Urine Bacteria 0 SEEN Urine Mucus 0 SEEN Blood Type A POSITIVE Discharge Plan Triage Chief Complaint: Vag Bleeding ED Provider: Corwin Hooks Dx/Rx/DC Orders Instructions: ED Dysfunctional Uterine Bleeding Prescriptions: No Action citalopram 40 MG tablet 40 mg PO DAILY alprazolam 0.25 MG tablet 0.25 mg PO TID PRN (Reason: Anxiety) drospirenone-ethinyl estradiol 1 EACH tablet 1 tab PO DAILY lamotrigine 200 mg Tablet 200 mg PO BID lorazepam 1 MG tablet 1 mg PO TID PRN (Reason: Seizure Activity) clobazam [Onfi] 10 mg Tablet 10 mg PO QHS Primary Care Provider: Dennise Mock Referrals: Dennise Mock PA [Primary Care Provider] - Disposition Disposition: Home, Self Care Discharge Date/Time: 08/23/22 20:59
[2022-08-23 19:43] VITALS: BP 118/86; PULSE 93; RESP 16; O2SAT 98
[2022-08-23 20:00] LABS: Bacteria 0 SEEN /hpf (None Seen); Mucous, Urine 0 SEEN /hpf (<or=2+)
[2022-08-23 20:04] VITALS: BP 127/98; BP 128/97; BP 140/102; PULSE 110; PULSE 129; PULSE 90
[2022-08-23 20:06] LABS: Color, Urine Yellow (Yellow); Glucose, Dipstick Normal (Normal); Ketone-Dipstick Negative (Negative); Leukocyte Esterase-Dipstick Negative /ul (Negative); Nitrite-Dipstick Negative (Negative); Occult Blood-Urine 250 /ul (Negative); Protein-Dipstick Negative (Negative); Urine Bilirubin Dipstick Negative (Negative); Urine Clarity Clear (Clear); Urine Urobilinogen Normal (Normal)
[2022-08-23 20:12] LABS: Red Blood Cells-Urine 0-5 SEEN /hpf (0-5); Squamous Epithelial Cells - UA 0-5 SEEN /hpf (5-10); White Blood Cells 0-5 SEEN /hpf (0-5)
[2022-08-23 20:58] VITALS: BP 118/64; PULSE 81; RESP 16; O2SAT 99
== END 2022-08-23 20:59 | disposition home or self-care (01) ==
PROVIDERS: Emergency Provider Student in an Organized Health Care Education/Training Program; Visit Provider Student in an Organized Health Care Education/Training Program
DX: N93.8 Other specified abnormal uterine and vaginal bleeding (principal); Q04.6 Congenital cerebral cysts; F41.9 Anxiety disorder, unspecified; Z79.899 Other long term (current) drug therapy; Z79.3 Long term (current) use of hormonal contraceptives
CPT/HCPCS: 80053; 81001; 84703; 85025; 86900; 86901; 99284

== ENCOUNTER 2022-09-24 12:01 | Observation (INO) | payer MEDICAID, SELFPAY ==
[2022-09-20 10:15] LABS: Hematocrit 39.2 % (37-47); Hemoglobin 12.9 g/dL (12.0-15.0); Mean Corp Hgb Conc 32.9 g/dL (32-36); Mean Corpuscular Hgb 29.3 pg (27.0-32.0); Mean Corpuscular Volume 88.9 fL (81-99); Mean Platelet Vol. 10.8 fl (6.2-12.0); Platelet Count 232 K/mm3 (150-450); RBC Distribution Width CV 13.1 % (11.6-14.6); RBC Distribution Width SD 42.8 fl (35.1-43.9); Red Blood Count 4.41 M/mm3 (4.2-5.4); White Blood Count 9.3 K/mm3 (4.4-11.0)
[2022-09-24] VITALS (30 sets, daily range): BP systolic 117–157; BP diastolic 67–102; PULSE 71–110; RESP 3–19; TEMP 36.3–36.8; O2SAT 93–100; BMI 20.4; BMI 20.3
[2022-09-24 06:31] LABS: Internal QC Validated? YES +Cl - CLEAR BKGD; Pregnancy, Urine Negative Negative
[2022-09-24] MEDS: Lactated Ringers 1,000 ML 15 ML IV (06:31)
--- NOTE | 2022-09-24 07:06 | PCM.HP.BLA ---
History and Physical Date of Admission: 09/24/22 Chief complaint: Abnormal uterine bleeding, desires permanent sterilization History of present illness: 27-year-old arrives for scheduled hysteroscopy, dilation curettage, endometrial ablation, laparoscopic tubal ligation for abnormal uterine bleeding and desires permanent sterilization. No medical changes on/seen. All questions answered and consent signed. Obstetric history: with a history of 2 vaginal deliveries Past medical history: Epilepsy, anxiety depression Medications: Citalopram, duloxetine, Keppra, lamotrigine, Xanax, Ativan Allergies: No known drug allergies Past surgical history: Heel surgery Social history: Denies smoking, alcohol use, drug use Family history: Denies history DVT or PE Review of systems: Besides above pertinent positives a full review of systems was performed and found to be negative Physical exam: Vitals: Blood pressure 129/75 pulse 86 respiratory rate 12 temperature 97.3 ?F SPO2 99% on room air General: Normal-appearing no acute distress HEENT: Normocephalic/atraumatic no cervical lymphadenopathy Cardiac/respiratory: No use of accessory muscles, nonlabored breathing Abdomen: Soft, nontender, nondistended Extremities: No peripheral edema normal peripheral pulses Psych: Normal affect normal demeanor nonpressured speech Labs: Urine test negative Assessment and plan: 27-year-old arrives for scheduled hysteroscopy, dilation curettage, endometrial ablation, laparoscopic tubal ligation for abnormal uterine bleeding and desire permanent sterilization. Patient understands risk of the procedure include but are not limited to visceral or vascular injury, prolonged hospitalization, blood loss need for transfusion, reoperation. Patient state understanding wish to proceed. All questions were answered and consent was signed.
--- NOTE | 2022-09-24 07:30 | EMB_PTH ---
PATIENT: EFRA VERMA LOC: ICU U#:[id number] AGE/SX: 27/F ROOM: [facility] RE09/24/[address]: Dr. Marco A Islas MD : 1995 BED: 1 DIS: 09/25/2022 SPEC #: [id number] RECD: 09/24/22 10:56 STATUS: JAMES REGus #: [id number] MARY: 09/24/22 07:[address]: Marco A Islas DEPT: SURGICAL PATHOLOGY RECD BY: Noa Lemons ENTERED: 09/24/22 12:02 SP TYPE: ENDOM BX/C ABDIEL DR: CAT Polanco Tissues: A - Endometrium, NOS B - Fallopian tube Procedures: Surgery Specimen Level II Surgery Specimen Level IV HEADER OPERATION: Hysteroscopy, D & C [place] PRE-OP DIAGNOSIS: Abnormal uterine bleeding TISSUE SUBMITTED: A ? Endometrial curettings, B ? Bilateral fallopian tubes MICROSCOPIC DIAGNOSIS A. Endometrial curettings: Weakly proliferative endometrium with focal area of exogenous hormone effect. B. Bilateral fallopian tubes, salpingectomy: Bilateral fallopian tubes, no pathologic diagnosis. LIONEL:keisha 09/25/2022 MICROSCOPIC DESCRIPTION Slides are reviewed. GROSS DESCRIPTION A - Received in fixative is one container labeled with the patient's name and designated endometrial curettings. The specimen consists of multiple fragments of hemorrhagic soft tissue that in aggregate measure 3.0 x 2.5 x 0.2 cm. The specimen is totally submitted in one cassette. B - Received in fixative is one container labeled with the patient's name and designated bilateral fallopian tubes. The specimen consists of bilateral fallopian tubes including fimbrial ends measuring 6.0 cm in length and 0.5 cm in diameter and 7.0 cm in length and 0.5 cm in diameter. The fallopian tubes are not identified as right or left. Sections reveal unremarkable cut surfaces. [employer] sections are submitted in two cassettes with each cassette containing one fallopian tube. / LIONEL:keisha 09/24/2022 TC:5 CPT: 42449, 87518 x2
--- NOTE | 2022-09-24 08:11 | OP.PCM_ITS ---
Report of Operation Date of Procedure: 09/24/22 Pre-Operative Diagnosis: Abnormal uterine bleeding, desires permanent steriliza tion Post-Operative Diagnosis: Abnormal uterine bleeding, desires permanent sterilization Surgery/Procedure Performed:: Hysteroscopy, dilation curettage, endometrial elation via Awilda, laparoscopic salpingectomy Description of Surgical Findings:: Surgeon: Marco A Islas MD Anesthesia: General EBL: 5 cc Urine output: 200 cc IV fluids: 1000 cc Complications: None Specimen: None Findings: No pathology noted on preprocedure hysteroscopy. Cavity length found to be 6 cm. Post procedure hysteroscopy with post ablation findings otherwise no pathology noted. Laparoscopy with normal uterus, tubes, and ovaries. Consent: Patient with abnormal uterine bleeding and desires permanent sterilization elects for hysteroscopy, dilation curettage, endometrial ablation via Awilda, laparoscopic salpingectomy. Patient understands risk of the procedure include but are not limited to visceral or vascular injury, prolonged hospitalization, blood loss need for transfusion, reoperation. Patient state understanding wish to proceed. All questions were answered and consent was signed. Procedure: Patient was brought back to the OR where general anesthesia was found to be adequate. Patient was prepared and draped in a dorsolithotomy position with yellowfin stirrups. A weighted speculum is placed in the posterior aspect of the vagina and cervical dilators were used to dilate the cervix. Hysteroscope was inserted and above findings were noted. Sharp endometrial curettings were performed in all quadrants and sent to pathology. Uterine cavity length was found to be 6 cm. Awilda endometrial ablation device was inserted under direct visualization with 6 cm cavity length. Safety test on Awilda were passed x2. Endometrial ablation occurred for 120 seconds. Endometrial ablation device was removed under direct visualization. Post procedure hysteroscope was inserted and above findings were noted no pathology was noted. Uterine manipulator was placed. Varies needle was inserted at the umbilicus and water safety test was passed. Abdomen was insufflated. 5 mm supraumbilical midline trocar incision was made and 5 mm trocar was inserted under direct visualization. Laparoscope was inserted and above findings were noted. Left lower quadrant 5 mm trocar was inserted under direct visualization. 8 mm right lower quadrant trocar was inserted under direct visualization. Using atraumatic grasper and a LigaSure device the left fallopian tube was identified out to the fimbria and the mesosalpinx was cut and cauterized with LigaSure device. Left fallopian tube was transected at the cornua and removed from the abdomen and sent to pathology. Good hemostasis was noted. In a similar fashion the right fallopian tube was identified to the fimbria and the mesosalpinx was cut and cauterized with LigaSure device, right fallopian tube was transected at the cornua, removed from the abdominal cavity and sent to pathology. Good hemostasis was noted. Abdomen was desufflated, trocars were removed under direct visualization, good hemostasis was noted. Laparoscopic incisions were closed in a subcutaneous fashion and skin glue was placed over the incisions. Good hemostasis was noted. All counts were correct x2. Patient tolerated procedure well and was brought to recovery in stable condition. morale officer: Saleem Toscano
--- NOTE | 2022-09-24 08:11 | DCINST_ITS ---
Discharge Instructions Diet Discharge Diet: No restrictions Activity Discharge Activity: Return to Normal Activity, May Drive and May Shower May resume sexual activity in: 6-8 weeks Lifting Restrictions: No lifting over 25 pounds for 2 to 3 weeks Dressing / Incision Call your doctor if your incision/area has: Continuous Slow Oozing and Foul Smelling Discharge Call your doctor if you observe: Fever of 101 or Higher, Shortness of breath and Chest pain Follow Up Care Please Follow Up With: Marco A Islas MD When: 2 weeks postoperatively Test Results: Test results from this visit will be discussed in further detail at your follow- up appointment, if applicable. Discharge Plan Admission Attending Provider: Marco A Islas Primary Care Provider: Dennise Mock Discharge Orders/Prescriptions Prescriptions: No Action alprazolam 0.25 MG tablet 0.25 mg PO TID PRN (Reason: Anxiety) drospirenone-ethinyl estradiol 1 EACH tablet 1 tab PO DAILY lorazepam 1 MG tablet 1 mg PO TID PRN (Reason: Seizure Activity) levetiracetam [Keppra] 500 mg Tablet 500 mg PO DAILY duloxetine 60 mg Capsule, Delayed Rel Sprinkle 60 mg PO DAILY Referrals / Follow Up: Dennise Mock PA [Primary Care Provider] - Disposition Disposition (needs filled in before D/C Order can be placed): Home, Self Care
[2022-09-24] MEDS: Lactated Ringers 1,000 ML 120 ML IV (09:05)
--- NOTE | 2022-09-24 09:39 | PCM.PN.BLA ---
Progress Note Notified by nursing that patient had 3 to 4-minute seizure on her way from PACU to phase 2 recovery. Arrived to room, anesthesia has given Versed. Patient resting comfortably arousable with stimulation. We will continue to monitor
--- NOTE | 2022-09-24 09:41 | SUR.PHASEII ---
917 Patient arrived from PACU. Seizure activity noted , lasting till 924. Movement of BUE and BLE noted . Dr Watts at the bedside . 922 Versed 2mg iv given. Oral airway inserted , 4L per NC applied . 939 Dr Marco A Islas at bedside , pt arousable , able to open eyes . 942 pulse ox 100%, o2 decreased to 2 l per nc.
--- NOTE | 2022-09-24 12:03 | SUR.PHASEII ---
1050 2nd seizure witnessed , lasting 3 minutes. Father at bedside .1054 Versed 2 mg iv given per Dr Watts.1104 Keppra Iv order placed per Stefanie. 1110 pt transferred to pacu to monitored 1on1 by RN.
--- NOTE | 2022-09-24 12:12 | SUR.PHASEII ---
1153 Pt started shaking , asked if she was cold , applied warmer . 3rd seizure witnessed, nonrebreather mask appled @100 %, seizure lasting 6minutes, BECKWITH.1158 Versed 2mg iv given, per Per Stefanie. Dr. Watts at bedside and dr Marco A Islas notified. Admit orders to be placed for ICU. 1202 Pt resting comfortably , no seizure activity noted .VSS 99% on 12L per nonrebreather mask.
--- NOTE | 2022-09-24 12:40 | SUR.PHASEII ---
1230 pt transferred to ICU via bed and court monitor by 2 RNS. pt awake and alert. pt informed of plan of care .family updated.
--- NOTE | 2022-09-24 12:42 | SUR.PHASEII ---
1220 report called to FIVE ROLL REFINER BATCH MIXERBECCA Medley.
[2022-09-24] MEDS: Acetaminophen 500 MG Tablet 1000 MG PO ×3 (13:57→23:24)
[2022-09-24] MEDS: DULoxetine Hcl 60 MG Capsule PO (21:35)
[2022-09-24] MEDS: levETIRAcetam 1,000 MG Tablet 1000 MG PO (21:35)
[2022-09-24] MEDS: Ibuprofen 600 MG Tablet PO (21:35)
[2022-09-25] VITALS (10 sets, daily range): BP systolic 111–132; BP diastolic 73–89; PULSE 67–102; RESP 13–24; TEMP 36.5; O2SAT 97–100; BMI 21.1
[2022-09-25 03:12] LABS: Absolute Lymphocyte Count 3.62 X10^3/uL (0.83-4.51); Absolute Neutrophil Count 7.2 X10^3/uL (2.0-7.7); Basophil# 0.04 X10^3/uL; Basophil% 0.3 % (0-1); Eosinophil# 0.11 X10^3/uL; Eosinophils% 0.9 % (0-5); Hematocrit 32.9 % (37-47); Hemoglobin 11.2 g/dL (12.0-15.0); Lymphocyte # 3.62 X10^3/ul (0.83-4.51); Lymphocyte % 30.1 % (19-41); Mean Corpuscular Hgb 30.4 pg (27.0-32.0); Mean Corpuscular Volume 89.2 fL (81-99); Mean Platelet Vol. 10.8 fl (6.2-12.0); Monocyte# 1.01 X10^3/uL; Monocyte% 8.4 % (0-10); NRBC Flagged by Analyzer 0 % (0-5); Neutrophil # 7.22 X10^3/uL (2.7-7.7); Neutrophil % 60.1 % (47-70); Platelet Count 228 K/mm3 (150-450); RBC Distribution Width CV 12.8 % (11.6-14.6); Red Blood Count 3.69 M/mm3 (4.2-5.4)
[2022-09-25 03:56] LABS: Anion Gap 7 (5-15); BUN 7 mg/dL (7-18); Calcium,Total 8.1 mg/dL (8.5-10.1); Chloride 111 mmol/L (98-107); Creatinine, Serum 0.58 mg/dL (0.55-1.02); EST Glomerular Filtration Rate 132 mL/min (>60); Est Glom Filt Rate - Afr Amer 160 mL/min (>60); Glucose 88 mg/dL (74-106); Potassium 3.8 mmol/L (3.5-5.1); Sodium Level 141 mmol/L (136-145)
[2022-09-25] MEDS: Acetaminophen 500 MG Tablet 1000 MG PO (06:31)
[2022-09-25] MEDS: Ibuprofen 600 MG Tablet PO (07:52)
--- NOTE | 2022-09-25 08:11 | CASEMGMT ---
Social Work Pt does not have LW/POA as per admitting senior quality analyst, and was not interested in any additional information at this time. DALTON Arce
--- NOTE | 2022-09-25 08:30 | PN.OBGYN_ITS ---
Subjective Subjective No overnight complaints. Denies headache, vision changes, dizziness, weakness, denies confusion Objective Data Objective Data Vital Signs: Vital Signs Temp Pulse Resp BP Pulse Ox O2 Del Method O2 Flow Rate 97.7 F L 87 13 125/89 H 100 Room Air 2 09/25/22 06:00 09/25/22 07:00 09/25/22 07:00 09/25/22 07:00 09/25/22 07:00 09/25/22 07:00 09/24/22 11:45 Oxygen Flow Rate (L/min) 2 Oxygen Delivery Method Room Air Weight: 123 lb 10.869 oz Body Mass Index (BMI) 21.1 Intake & Output: Intake and Output for Last 24 Hours 09/23/22 09/24/22 09/25/22 23:59 23:59 23:59 Intake Total 2105 / 2105 Output Total 400 / 400 Balance 1705 / 1705 Lab / Micro Data Result Diagrams: 09/25/22 03:01 09/25/22 03:01 Labs: Laboratory Results - last 24 hr 09/25/22 03:01: WBC 12.0 H, RBC 3.69 L, Hgb 11.2 L, Hct 32.9 L, MCV 89.2, MCH 30.4, MCHC 34.0, RDW Std Deviation 42.0, RDW Coeff of Kaitlin 12.8, Plt Count 228, MPV 10.8, Immature Gran % (Auto) 0.200, Neut % (Auto) 60.1, Lymph % (Auto) 30.1, Union % (Auto) 8.4, Eos % (Auto) 0.9, Baso % (Auto) 0.3, Absolute Neuts (auto) 7.2, Absolute Lymphs (auto) 3.62, Nucleated RBC % 0 09/25/22 03:01: Sodium 141, Potassium 3.8, Chloride 111 H, Carbon Dioxide 23.0, Anion Gap 7, BUN 7, Creatinine 0.58, Estim Creat Clear Calc 124.20, Est GFR (MDRD) Af Amer 160, Est GFR (MDRD) Non-Af 132, BUN/Creatinine Ratio 12.0, Glucose 88, Calcium 8.1 L Physical Exam Const alert, oriented x3, no apparent distress, average body habitus, healthy appearing and well nourished HEENT normocephalic and moist oral mucous membranes Eyes PERRL Neck full ROM Resp normal respiratory effort, no retractions and no use of accessory muscles GI GI Narrative: Soft, nontender, incisions clean dry and intact Extremity normal to inspection and full ROM Neuro moves all extremities and no focal motor deficits Psych mental status grossly normal, affect normal, speech normal and activity/motor behavior normal Assessment & Plan (1) Epilepsy: PLAN: Postop day 1 ICU day 1 status post laparoscopic tubal ligation, hysteroscopy D&C and endometrial ablation. ICU day 1 for recurrent epilepsy. Yesterday discussed case with patient's outpatient neurologist Dr. Jacobson whom suggested Keppra IV and increased dose of oral Keppra and overnight monitoring along with follow-up within 1 week. Also consulted neurology here at [facility] via telehealth discussed case with neurologist whom said patient with psychogenic seizures, psychosomatic seizures that were mentioned by the patient and her family. Patient's outpatient neurologist Dr. Jacobson did not mention psychogenic seizures and when I discussed the issues with her this morning she did mention that Dr. Jacobson had discussed anxiety being related to her seizures but was unaware they were psychogenic seizures. [facility] telehealth neurologist agreed with increased dose of Keppra 1000 mg twice daily which was started overnight. Overnight monitoring with no epilepsy and asymptomatic overall doing, okay to discharge home on increased dose of Keppra and follow-up with her outpatient neurologist
== END 2022-09-25 09:45 | disposition home or self-care (01) ==
LOC: ICU 09-25 07:56
PROVIDERS: Anesthesiology; Family Medicine; Admitting Provider Obstetrics & Gynecology; Referring Provider Obstetrics & Gynecology; Visit Provider Obstetrics & Gynecology
PROC: 0U5B8ZZ Destruction of Endometrium, Via Natural or Artificial Opening Endoscopic (ICD-10-PCS; CPT 58558; principal; 2022-09-24 07:15)
PROC: (CPT 58661; 2022-09-24 07:15)
DX: Z30.2 Encounter for sterilization (principal); Q04.6 Congenital cerebral cysts; G40.909 Epilepsy, unspecified, not intractable, without status epilepticus; N93.9 Abnormal uterine and vaginal bleeding, unspecified; Z79.899 Other long term (current) drug therapy
CPT/HCPCS: 58563; 58700; 36415; 80048; 81025; 85025; 85027; 86850; 86900; 86901; 88302; 88305; 94668; 99221; J7120; G0378; J2405

== ENCOUNTER 2024-02-20 05:21 | Day surgery (SDC) | payer MEDICAID, SELFPAY ==
[2024-02-20] VITALS (17 sets, daily range): BP systolic 96–119; BP diastolic 65–80; PULSE 55–92; RESP 16; TEMP 36.1–37.7; O2SAT 98–100; BMI 20.8
[2024-02-20] MEDS: Lactated Ringers 1,000 ML 40 ML IV (06:13)
[2024-02-20 06:15] LABS: Internal QC Validated? YES +Cl - CLEAR BKGD; Pregnancy, Urine Negative Negative; Record Kit Lot#,Urine Preg 869294
[2024-02-20] MEDS: Celecoxib 200 MG Capsule 400 MG PO (06:18)
[2024-02-20] MEDS: Phenazopyridine 95 MG Tablet 190 MG PO (06:18)
[2024-02-20] MEDS: Acetaminophen 500 MG Tablet 1000 MG PO (06:18)
[2024-02-20] MEDS: Gabapentin 600 MG Tablet PO (06:19)
[2024-02-20] MEDS: Scopolamine 1mg/72hr Patch 1 PATCH TD (06:20)
[2024-02-20] MEDS: Enoxaparin 40 MG/0.4 ML Syringe SC (06:20)
[2024-02-20 07:05] LABS: Partial Thromboplast Time 28.5 Seconds (24.1-36.2)
[2024-02-20] MEDS: Magnesium 1 GM over 15 mins IV (07:06)
[2024-02-20] MEDS: Cefazolin 2 GM in Syringe IV (07:36)
[2024-02-20] MEDS: Bupivacaine Mpf 0.5% 30 ML VIAL (08:58)
[2024-02-20 11:24] LABS: Bedside Glucose 96 mg/dL (74-106)
[2024-02-20] MEDS: Lactated Ringers @ 70 MLS/HR 70 ML IV (12:39)
== END 2024-02-20 16:44 | disposition home or self-care (01) ==
LOC: SDC 05:22 → AC 05:23
PROVIDERS: Anesthesiology; Referring Provider Obstetrics & Gynecology; Visit Provider Obstetrics & Gynecology
PROC: 0UT94ZZ Resection of Uterus, Percutaneous Endoscopic Approach (ICD-10-PCS; CPT 58570; principal; 2024-02-20 07:10)
DX: N93.9 Abnormal uterine and vaginal bleeding, unspecified (principal); Z30.49 Encounter for surveillance of other contraceptives; N72 Inflammatory disease of cervix uteri; Z86.73 Personal history of transient ischemic attack (TIA), and cerebral infarction without residual deficits; Z98.51 Tubal ligation status; F41.9 Anxiety disorder, unspecified
CPT/HCPCS: 58570; 52000; 00840; 81025; 82962; 83735; 85730; 86850; 86900; 86901; 88307; J7120; J2405; J3475